=== PATIENT | male | born 1950 | race Caucasian/White ===

== ENCOUNTER 2020-11-03 08:49 | Outpatient (REF) | payer MEDICARE, SELFPAY | END 2020-11-03 08:50 | disposition home or self-care (01) | LOC: HO.LAB 08:49 | PROVIDERS: PCP Internal Medicine; Visit Provider Internal Medicine | DX: Z20.822 Contact with and (suspected) exposure to COVID-19 (principal) | CPT/HCPCS: 36415; C9803; U0003 ==

== ENCOUNTER 2025-04-30 13:48 | Outpatient (RCR) | payer MEDICARE, SELFPAY | END 2025-06-16 09:42 | disposition home or self-care (01) | LOC: HO.PT 13:48 | PROVIDERS: PCP Internal Medicine; Visit Provider Physician Assistant Medical | DX: N39.3 Stress incontinence (female) (male) (principal); C61 Malignant neoplasm of prostate | CPT/HCPCS: 97110; 97112; 97140; 97161; 97530 ==